=== PATIENT | male | born 1965 | race Caucasian/White ===

== ENCOUNTER 2019-02-21 14:41 | Emergency (ER) | payer MEDICAID ==
[~2019-02-21] VITALS: Ht 177.8 cm; Wt 90.0 kg
[~2019-02-21 14:41] MED LIST: CIPR-230 PO; HYDR-4383 PO; LEVO100T PO; RIFA300C4 PO
[2019-02-21 14:54] VITALS: BP 120/64
[2019-02-21 16:24] LABS: BASOPHILS % (AUTO) 0.6 % (0-1); EOSINOPHILS # (AUTO) 0.2 X10'3 (0-0.9); EOSINOPHILS % (AUTO) 3.3 % (0-6); HEMATOCRIT 38.8 % (42.0-52.0); HEMOGLOBIN 12.8 g/dl (14.0-17.9); LYMPHOCYTES # (AUTO) 1.9 X10'3 (1.1-4.8); LYMPHOCYTES % (AUTO) 26.3 % (21-51); MEAN CORPUSCULAR HEMOGLOBIN 32.1 PG (27.0-31.0); MEAN CORPUSCULAR HGB CONC 32.9 g/dL (33.0-36.5); MEAN CORPUSCULAR VOLUME 97.5 FL (78-98); MONOCYTES # (AUTO) 0.7 X10'3 (0-0.9); MONOCYTES % (AUTO) 10.5 % (2-12); NEUTROPHILS # (AUTO) 4.2 X10'3 (1.8-7.7); NEUTROPHILS % (AUTO) 59.3 % (42-75); PLATELET COUNT 141 X10'3 (140-440); RED BLOOD COUNT 3.98 X10'6 (4.70-6.10); RED CELL DISTRIBUTION WIDTH 16.2 % (11.5-14.5); WHITE BLOOD COUNT 7.1 X10'3 (4.5-11.0)
[2019-02-21] MEDS ORDERED: DOXY100C43 PO (17:04)
[2019-02-21] MEDS ORDERED: DOXYCYCLINE 100MG CAPSULE PO STA (17:05)
[2019-02-21] MEDS ORDERED: HYDROcodone/acetaminophen 5mg/325mg tablet PO ONE (17:15)
== END 2019-02-21 17:25 | disposition home or self-care (01) ==
LOC: ER 14:41
DX: L03.115 Cellulitis of right lower limb (principal); E03.9 Hypothyroidism, unspecified; F10.99 Alcohol use, unspecified with unspecified alcohol-induced disorder; Z56.0 Unemployment, unspecified; Z88.5 Allergy status to narcotic agent; Z79.899 Other long term (current) drug therapy; Y90.9 Presence of alcohol in blood, level not specified
CPT/HCPCS: 36415; 85025; 93971; 99284

== ENCOUNTER 2019-07-10 00:41 | Emergency (ER) | payer MEDICAID ==
[~2019-07-10] VITALS: Ht 175.3 cm; Wt 86.4 kg
[~2019-07-10 00:41] MED LIST changes: -CIPR-230 PO
[2019-07-10] MEDS ORDERED: CEPH500C5 PO (02:42)
[2019-07-10 02:51] VITALS: BP 140/80
== END 2019-07-10 02:54 | disposition home or self-care (01) ==
LOC: ER 00:42
DX: L03.115 Cellulitis of right lower limb (principal); E03.9 Hypothyroidism, unspecified; F10.99 Alcohol use, unspecified with unspecified alcohol-induced disorder; Z56.0 Unemployment, unspecified; Z88.5 Allergy status to narcotic agent; Z79.899 Other long term (current) drug therapy; Y90.9 Presence of alcohol in blood, level not specified
CPT/HCPCS: 73590; 93971; 99284

== ENCOUNTER 2019-07-11 00:39 | Emergency (ER) | payer MEDICAID ==
[~2019-07-11 00:39] MED LIST changes: +CEPH500C5 PO
== END 2019-07-11 01:03 | disposition left against medical advice (07) ==
LOC: ER 00:40
DX: M79.606 Pain in leg, unspecified (principal); Z53.21 Procedure and treatment not carried out due to patient leaving prior to being seen by health care provider

== ENCOUNTER 2019-07-23 13:56 | Emergency (ER) | payer MEDICAID ==
[~2019-07-23] VITALS: Ht 175.3 cm; Wt 81.0 kg
[~2019-07-23 13:56] MED LIST changes: -CEPH500C5 PO
[2019-07-23] MEDS ORDERED: TETanus/Pertussis (Acell)/Diphther VAC/PF (Tdap-Adult) 0.5ml syringe IMVAC ONE (14:25)
[2019-07-23] MEDS ORDERED: CEPH-572 PO (15:28)
[2019-07-23] MEDS ORDERED: SULF1TAB49 PO (16:21)
[2019-07-23 16:37] VITALS: BP 119/75
== END 2019-07-23 16:29 | disposition home or self-care (01) ==
LOC: ER 13:56
DX: R60.0 Localized edema (principal); L03.116 Cellulitis of left lower limb; L02.512 Cutaneous abscess of left hand; L03.114 Cellulitis of left upper limb; E03.9 Hypothyroidism, unspecified; Z88.5 Allergy status to narcotic agent; Z79.2 Long term (current) use of antibiotics; Z79.899 Other long term (current) drug therapy; Z59.0 Homelessness; Z56.0 Unemployment, unspecified
CPT/HCPCS: 90471; 90715; 99284

== ENCOUNTER 2019-11-12 16:27 | Emergency (ER) | payer MEDICAID ==
[~2019-11-12] VITALS: Ht 177.8 cm; Wt 86.4 kg
--- NOTE | 2019-11-12 17:51 | NUR ---
PT TAKEN TO CT VIA GURNEY BY TECH.
--- NOTE | 2019-11-12 18:02 | NUR ---
PT BACK FROM CT
[2019-11-12] MEDS ORDERED: magnesium 2GM in 50ml NS 50 ML IV ONE (18:40)
[2019-11-12] MEDS ORDERED: morphine 4 MG/ML inj SYRINge IV ONE (18:40)
[2019-11-12 18:55] LABS: BASOPHILS # (AUTO) 0.1 X10'3 (0-0.2); EOSINOPHILS # (AUTO) 0.1 X10'3 (0-0.9); EOSINOPHILS % (AUTO) 0.9 % (0-6); HEMOGLOBIN 10.4 g/dl (14.0-17.9); LYMPHOCYTES # (AUTO) 2.5 X10'3 (1.1-4.8); LYMPHOCYTES % (AUTO) 21.6 % (21-51); MEAN CORPUSCULAR HEMOGLOBIN 31.1 PG (27.0-31.0); MEAN CORPUSCULAR HGB CONC 32.6 g/dL (33.0-36.5); MEAN CORPUSCULAR VOLUME 95.5 FL (78-98); MEAN PLATELET VOLUME 7.6 FL (7.4-10.4); MONOCYTES # (AUTO) 1.3 X10'3 (0-0.9); MONOCYTES % (AUTO) 11.2 % (2-12); NEUTROPHILS # (AUTO) 7.6 X10'3 (1.8-7.7); NEUTROPHILS % (AUTO) 65.3 % (42-75); PLATELET COUNT 186 X10'3 (140-440); RED BLOOD COUNT 3.35 X10'6 (4.70-6.10); RED CELL DISTRIBUTION WIDTH 16.3 % (11.5-14.5); WHITE BLOOD COUNT 11.6 X10'3 (4.5-11.0)
[2019-11-12 19:04] LABS: ALANINE AMINOTRANSFERASE 148 U/L (12-78); ALBUMIN 3.3 G/DL (3.4-5.0); ALBUMIN/GLOBULIN RATIO 0.8 (1.1-1.5); ALKALINE PHOSPHATASE 78 IU/L (46-116); ANION GAP 7 (8-16); ASPARTATE AMINO TRANSFERASE 115 U/L (10-37); BILIRUBIN,TOTAL 0.6 MG/DL (0.1-1.0); BLOOD UREA NITROGEN 17 MG/DL (7-18); BUN/CREATININE RATIO 13.8 (5.4-32.0); CALCIUM 9.1 MG/DL (8.5-10.1); CHLORIDE 104 MMOL/L (99-107); CREATININE 1.23 MG/DL (0.60-1.10); GLUCOSE 83 MG/DL (70-104); POTASSIUM 3.8 MMOL/L (3.5-5.1); SODIUM 140 MMOL/L (135-145); TOTAL CARBON DIOXIDE 28.7 MMOL/L (24-32); TOTAL PROTEIN 7.4 G/DL (6.4-8.2); eGFR 61 ML/MIN
[2019-11-12 19:08] LABS: ETHANOL < 0.010 GM/DL (0.0-0.010); TROPONIN I < 0.04 NG/ML (0.0-0.05)
[2019-11-12 19:10] LABS: PARTIAL THROMBOPLASTIN TIME 26 SECONDS (22-32)
[2019-11-12 19:13] VITALS: BP 139/79
--- NOTE | 2019-11-12 19:13 | NUR ---
Report given to [facility] ER nurse.
[2019-11-12] MEDS ORDERED: levetiracetam-NS 1000mg/100ml 100 ML IV SCH (20:00)
== END 2019-11-12 19:16 | disposition short-term general hospital (02) ==
LOC: ER 16:27
DX: I60.9 Nontraumatic subarachnoid hemorrhage, unspecified (principal); E03.5 Myxedema coma; R94.31 Abnormal electrocardiogram [ECG] [EKG]; R52 Pain, unspecified; R22.0 Localized swelling, mass and lump, head; E03.9 Hypothyroidism, unspecified; F19.90 Other psychoactive substance use, unspecified, uncomplicated; Z72.89 Other problems related to lifestyle; Z56.0 Unemployment, unspecified; Z59.0 Homelessness; Z88.6 Allergy status to analgesic agent; Z88.5 Allergy status to narcotic agent; Z79.899 Other long term (current) drug therapy
CPT/HCPCS: 36415; 70450; 80053; 80320; 82140; 84443; 84484; 85025; 85610; 85730; 93005; 96365; 96368; 96375; 99285; J1953; J2270; J3475

== ENCOUNTER 2020-05-07 14:28 | Emergency (ER) | payer MEDICAID ==
[~2020-05-07] VITALS: Ht 177.8 cm; Wt 90.0 kg
--- NOTE | 2020-05-07 15:24 | NUR ---
U/s at bedside doing exam
--- NOTE | 2020-05-07 15:24 | NUR ---
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
[2020-05-07 15:50] LABS: BASOPHILS # (AUTO) 0.2 X10'3 (0-0.2); BASOPHILS % (AUTO) 1.1 % (0-1); EOSINOPHILS # (AUTO) 0.3 X10'3 (0-0.9); EOSINOPHILS % (AUTO) 2.3 % (0-6); HEMATOCRIT 29.1 % (42.0-52.0); HEMOGLOBIN 9.6 g/dl (14.0-17.9); LYMPHOCYTES # (AUTO) 2.1 X10'3 (1.1-4.8); LYMPHOCYTES % (AUTO) 13.8 % (21-51); MEAN CORPUSCULAR HEMOGLOBIN 31.2 PG (27.0-31.0); MEAN CORPUSCULAR HGB CONC 32.9 g/dL (33.0-36.5); MEAN CORPUSCULAR VOLUME 94.6 FL (78-98); MEAN PLATELET VOLUME 7.6 FL (7.4-10.4); MONOCYTES # (AUTO) 1.4 X10'3 (0-0.9); MONOCYTES % (AUTO) 9.2 % (2-12); NEUTROPHILS % (AUTO) 73.6 % (42-75); PLATELET COUNT 155 X10'3 (140-440); RED BLOOD COUNT 3.08 X10'6 (4.70-6.10); RED CELL DISTRIBUTION WIDTH 20.7 % (11.5-14.5); WHITE BLOOD COUNT 14.9 X10'3 (4.5-11.0)
[2020-05-07] MEDS ORDERED: CLIN300C70 PO (16:10)
[2020-05-07 16:11] LABS: ALANINE AMINOTRANSFERASE 168 U/L (12-78); ALBUMIN 2.4 G/DL (3.4-5.0); ALBUMIN/GLOBULIN RATIO 0.4 (1.1-1.5); ALKALINE PHOSPHATASE 159 IU/L (46-116); ANION GAP 10 (8-16); ASPARTATE AMINO TRANSFERASE 93 U/L (10-37); BILIRUBIN,TOTAL 1.5 MG/DL (0.1-1.0); BLOOD UREA NITROGEN 9 MG/DL (7-18); BUN/CREATININE RATIO 10.3 (5.4-32.0); CALCIUM 7.6 MG/DL (8.5-10.1); CHLORIDE 104 MMOL/L (99-107); CREATININE 0.87 MG/DL (0.60-1.10); SODIUM 137 MMOL/L (135-145); TOTAL CARBON DIOXIDE 23.2 MMOL/L (24-32); TOTAL PROTEIN 8.6 G/DL (6.4-8.2); eGFR > 90 ML/MIN
[2020-05-07 16:12] LABS: GLUCOSE 142 MG/DL (70-104)
[2020-05-07 16:14] LABS: POTASSIUM 2.8 MMOL/L (3.5-5.1)
[2020-05-07] MEDS ORDERED: clindamycin 600mg/D5W 50ml 50 ML IV ONE (16:15)
[2020-05-07] MEDS ORDERED: potassium Cl 10 mEq/100mL bag IV ONE (16:15)
[2020-05-07] MEDS ORDERED: potassium Cl 20 mEq SR tablet PO ONE (16:15)
[2020-05-07] MEDS ORDERED: LIDO1ADH TOP (16:56)
[2020-05-07] MEDS ORDERED: LEVO100T PO (16:56)
[2020-05-07 17:23] LABS: TOTAL CELLS COUNTED 100
[2020-05-07 17:24] LABS: ANISOCYTOSIS 2+; PLATELET ESTIMATE NORMAL
[2020-05-07 17:25] LABS: POIKILOCYTOSIS FEW; POLYCHROMASIA FEW
[2020-05-07 18:31] VITALS: BP 142/93
== END 2020-05-07 18:33 | disposition home or self-care (01) ==
LOC: ER 14:28
DX: R60.0 Localized edema (principal); M79.605 Pain in left leg; E87.6 Hypokalemia; E03.9 Hypothyroidism, unspecified; F19.90 Other psychoactive substance use, unspecified, uncomplicated; Z72.89 Other problems related to lifestyle; Z56.0 Unemployment, unspecified; Z59.0 Homelessness; Z88.6 Allergy status to analgesic agent; Z88.5 Allergy status to narcotic agent; Z79.2 Long term (current) use of antibiotics; Z79.899 Other long term (current) drug therapy
CPT/HCPCS: 36415; 80053; 85007; 85025; 93971; 96365; 96368; 99284; J3480; J3490

== ENCOUNTER 2020-05-30 00:18 | Emergency (ER) | payer MEDICAID ==
[~2020-05-30] VITALS: Ht 175.3 cm; Wt 82.0 kg
[~2020-05-30 00:18] MED LIST changes: +LIDO1ADH TOP
[2020-05-30 00:21] VITALS: BP 133/91
--- NOTE | 2020-05-30 00:52 | NUR ---
marianne refused to leave with DC orders spoke to charge Gordon Arenas for extra assistance to dc patient.
== END 2020-05-30 00:54 | disposition home or self-care (01) ==
LOC: ER 00:19
DX: M25.572 Pain in left ankle and joints of left foot (principal); E03.9 Hypothyroidism, unspecified; F19.90 Other psychoactive substance use, unspecified, uncomplicated; Z72.89 Other problems related to lifestyle; Z59.0 Homelessness; Z56.0 Unemployment, unspecified; Z88.5 Allergy status to narcotic agent; Z88.6 Allergy status to analgesic agent; Z79.899 Other long term (current) drug therapy
CPT/HCPCS: 73610; 99284